=== PATIENT | female | born 1955 | race Caucasian/White ===

== ENCOUNTER 2017-04-24 08:24 | Emergency (ER) | payer OTHER ==
[~2017-04-24] VITALS: Ht 167.6 cm; Wt 80.0 kg
[2017-04-24 08:29] VITALS: BP 161/86
[2017-04-24] MEDS ORDERED: ASPI-515 PO (08:47)
== END 2017-04-24 09:54 | disposition home or self-care (01) ==
LOC: ED 09:12
DX: S83.411A Sprain of medial collateral ligament of right knee, initial encounter (principal); Z79.82 Long term (current) use of aspirin; V87.8XXA Person injured in other specified noncollision transport accidents involving motor vehicle (traffic), initial encounter; Y93.89 Activity, other specified; Y92.410 Unspecified street and highway as the place of occurrence of the external cause; Y99.8 Other external cause status
CPT/HCPCS: 29505